=== PATIENT | female | born 1935 | race Caucasian/White ===

== ENCOUNTER 2016-06-26 19:46 | Inpatient (IN) | payer OTHER, MEDICARE ==
[~2016-06-26] VITALS: Ht 160 cm; Wt 55.6 kg
[2016-06-26 21:19] VITALS: BP 117/48; PULSE 99; RESP 20
[2016-06-26] MEDS ORDERED: Ondansetron 2 mg/mL 2 mL Inj IVPUSH PRN (21:25)
[2016-06-26] MEDS ORDERED: Alum-Mag Hydrox-Simeth 30 mL Suspension PO PRN (21:25)
[2016-06-26] MEDS ORDERED: Diltiazem Inj 125 MG in Dextrose 5% 100 ML IV SCH (21:25)
[2016-06-26] MEDS ORDERED: Polyethylene Glycol (PEG) 17 Gm Powder PO PRN (21:25)
[2016-06-26 21:27] VITALS: PULSE 116
[2016-06-26 21:51] LABS: BASOPHILS % (AUTO) 0.3 % (0-3); EOSINOPHILS % (AUTO) 0.6 % (0-5); MONOCYTES % (AUTO) 6.1 % (4-12); Mean Corpuscular Hemoglobin 29.4 pg (27.0-35.0); NEUTROPHILS % (AUTO) 74.1 % (40-74); Platelet Count 282 bil/L (150-400)
[2016-06-26] MEDS ORDERED: LISI2.5T (21:55)
--- NOTE | 2016-06-26 22:08 | PCM.HPMED ---
Subjective Date of Service Jun 26, 2016 Primary Provider: Admitting Physician: Eden Pollock DO Primary Care Physician: Lakisha Lemus Attending Physician: Eden Pollock DO Admit Status: Direct Admit (From [place]) Chief Complaint: near syncope, weakness, dizziness History of Present Illness: 80yoF with past medical history of COPD requiring home oxygen, tobacco dependence, HTN transferred from OSH with weakness and dizziness found to be in atrial fibrillation with RVR. Patient has difficulties with dementia and HPI is obtained through family at bedside. 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 Her niece was driving to a restaurant to meet patient' s nephew. After they arrived at the restaurant her niece got out of the car and met her . When she turned around she saw her aunt who got out of the car and appeared to stumble with walking. They rushed to her side and caught her as she fell to the ground. She was taken to [facility]. At [facility] patient was found to be in atrial fibrillation with rapid ventricular response and started on diltiazem gtt with good response. she was also given lovenox (60mg) OSH labs include sodium 130, potassium 4.1, CO2 25, creatinine 0.5, troponin negative, BNP 101, INR 0.9, WBC 6.6, Hgb13.2, platelet 248. As patient is a difficult historian ROS are relatively unreliable however it is confirmed that she has had difficulties with diarrhea following steroid injection one year prior to admission. She denies fevers, chills, nausea, vomiting, chest pain, chest tightness, palpitations, lower extremity edema, orthopnea, PND, difficulties with urination. She does endorse increased falls recently. She prefers not to take medications but does use her home oxygen on setting #3 but can't tell me how much she uses it. Review of Systems: Complete review of systems has been obtained. Positive as per HPI otherwise negative. Allergies Coded Allergies: No Known Allergies (Unverified , 06/26/16) Home Medications Felodipine Lisinopril AREDS 2 PMH Tobacco dependence COPD oxygen dependent HTN Aortic stenosis Surgical History Sinus surgery Family History Diabetes, heart disease sister with breast cancer Social History Hx Alcohol Use: Yes Hx Substance Use: No Smoking Status: Current Every Day Smoker Exam Vital Signs Vital Sign - Last Date Time Temp Pulse Resp B/P Pulse Ox O2 Delivery O2 Flow Rate FiO2 06/26/16 21:27 116 06/26/16 21:19 36.4 20 117/48 Room Air Exam General: Alert, Oriented to self, year, knows president, Cooperative, No acute Distress, raspy voice Eyes: PERRLA, Scleral Anicteric Mouth: Mouth Normal, Mucous Membranes moist/[place] Neck: Supple, no Thyromegaly, trachea central. Chest & Lungs: CTA bilat, barrel chest, good resp effort Cardiovascular: Normal S1, Normal S2, No Murmurs/Rubs/Gallops, irregularly irregular/tachy, (no JVD, no peripheral edema) Pulses: Radial (present and equal), Dorsalis Pedi (present and equal) Abdomen: Soft, Non-tender, Non-distended, Normoactive bowel tones. Musculoskeletal: Unremarkable. Normal range of motion, no swollen or erythematous joints Extremities: no edema, no cyanosis, no clubbing. Skin: No rashes. Warm and dry, no erythematous areas Neurological: Grossly neurologically intact, Normal Speech, Sensation Intact Lymphatic: Lymph nodes Cervical and Axillary not palpable. Lab and Diagnostics Result Diagram: 06/26/162142 Assessment & Plan 80yoF with past medical history of COPD requiring home oxygen, tobacco dependence, HTN transferred from OSH with weakness and dizziness found to be in atrial fibrillation with RVR. New onset atrial fibrillation, acute, POA -a/w presenting symptoms of weakness and dizziness -no EKG avail on admit, EKG ordered -TSH and free T4 pending -cont diltiazem gtt, transition to PO rate control -ECHO ordered for am -patient was given 60mg lovenox prior to transfer however given h/o noncompliance and recent difficulties with cognition she may not be a good candidate for fdc anticoagulation. Day team to discuss with patient and family. please refer to ED documentation in paper chart Elevated glucose, acute -no history of diabetes -hgbA1c pending COPD, chronic -currently not taking any home medications -oxygen sats 88-92 -albuterol q2HR PRN HTN, chronic, POA -not compliant with home medications -consideration to restarting lisinopril and felodipine, normotensive on admission Tobacco dependence, chronic -discussed the importance of tobacco cessation, she is ready to cut back, doesn' t know how much she smokes -nicotine patch available upon request Dispo planning: patient with early dementia and is aware of difficulties with short term memory. She may require increased assistance at home in the near future and will require PT evaluation d/t increase number of falls in the past month. She is adamant about discharging 06/27 regardless of medical need for admission and family had difficulties persuading her to be admitted overnight stating she would rather go home and . She prefers to take no medications and has stopped taking medications she was given for hypertension. Pain Evaluation: Adequate Pain Control GI Prophylaxis: Not indicated VTE Prophylaxis: Other (therapeutic dose enoxaparin given prior to transfer. AM team to discuss further anticoagulation options) Resuscitation Status: CPR: Attempt Resuscitation Eden Pollock DO Jun 26, 2016 22:08
[2016-06-26 22:29] LABS: TROPONIN T 0.011 ug/L (0.0-0.011)
[2016-06-27 00:40] VITALS: BP 139/60; PULSE 86; PULSE 89; RESP 17; O2SAT 96
[2016-06-27 01:03] LABS: APPEARANCE,URINE CLEAR (CLEAR,HAZY); COLOR,URINE YELLOW (YELLOW); OCCULT BLOOD,URINE SMALL (NEGATIVE); PH,URINE 6.5 (5.0-8.0)
[2016-06-27 03:38] VITALS: BP 161/54; PULSE 64; RESP 18; O2SAT 97
[2016-06-27 03:52] LABS: BASOPHILS % (AUTO) 0.2 % (0-3); EOSINOPHILS % (AUTO) 2.1 % (0-5); MONOCYTES % (AUTO) 9.2 % (4-12); Mean Corpuscular Hemoglobin 29.3 pg (27.0-35.0); Mean Corpuscular Volume 89.3 fL (81-100); NEUTROPHILS % (AUTO) 54.5 % (40-74); Platelet Count 250 bil/L (150-400)
--- NOTE | 2016-06-27 04:54 | NUR ---
Admit: Pt admitted to P[facility] room 2030 from [facility]. Report received prior to transfer. Pt arrived a/ox3 in stable condition. Tele Afib 90s- with dilt gtt infusing @ 5ml/hr ( order continued by dr. Dillon) health history completed via pt interview. Pt current medication regime unclear as pt has new recent script for "BP meds" but states she is not taking them. pt resting comfortably in bed, call duran in reach.
--- NOTE | 2016-06-27 04:57 | NUR ---
Converted to SR Around 0200 pt Converted to SR/ Sbrady. MD made aware. Dilt gtt put on hold while pt is in SR. Vitals stable, Pt resting comfortably. No order for PO at this time.
[2016-06-27] MEDS ORDERED: FELO5TAB4 PO (07:51)
[2016-06-27] MEDS ORDERED: [UNRECOGNIZED DRUG - OTHER] PO (08:04)
[2016-06-27 09:30] VITALS: BP 157/53; PULSE 58; RESP 17; O2SAT 97
[2016-06-27 10:46] VITALS: PULSE 54
--- NOTE | 2016-06-27 11:24 | NUR ---
Social Work: Initial Assessment / Readiness for d/c Data: Pt is a 89 y/o female admitted for afib with RVR. Pt's PCP is Dr Lemus. Pt's insurance is Medicare wtih [employer] [place] of [place]. EMR reviewed. Readmit score not listed. DRAFTER SEISMOGRAPH met with pt and nephew at bedside, role explained. Pt states that she lives alone in a two story home in [place] where she uses no DME but has home O2 through [employer]. Pt states she drives, has no hx of HH or SNF, has LTC insurance through [employer] and does not have VA benefits nor is a caregiver. Pt's nephew lives 5 minutes away from her. She reports have an AD/DPOA, nephew states he will bring this in. No further d/c planning needs anticipated at this time. DRAFTER SEISMOGRAPH will continue to follow if needs arise. Assessment: Pt who is independent at baseline. Plan: Pt will d/c home via POV possibly today or tomorrow, per MD. No further d/c planning needs anticipated at this time. DRAFTER SEISMOGRAPH will continue to follow if needs arise. IVIS Alejandre Addendum: 06/27/16 at 1127 by ANAHI VELA Amended: Links added.
[2016-06-27 12:27] VITALS: BP 178/46; PULSE 56; RESP 19; O2SAT 95
--- NOTE | 2016-06-27 14:56 | DRSVH ---
[facility] [address] [place] [address] Echocardiogram Report Name: RODDY HUTCHINS EStudy Date: 06/27/2016 Height: 63 in Hospital Exam Location: [facility] Weight: 123 lb Gender: Female BSA: 1.6 m2 : 1935 Age: 80 yrs BP: 161/54 mmHg Reason For Study: AFIB Ordering Physician: HOSPITALIST SVHPerformed By: Edgar Wood Referring Physician: Marin CROWELL Interpretation Summary 1. Normal left ventricular size, wall thickness and systolic function with an estimated EF of 60-65% 2. Normal right ventricular size and systolic function. 3. Findings consistent with moderate aortic stenosis, trace insufficiency Compared to the previous study, no significant change Procedure: A two-dimensional transthoracic echocardiogram with color flow and Doppler was performed. The study quality was technically adequate. Comparison is made with the echocardiogram of 03/29/15. The patient was in normal sinus rhythm during the exam. Left Ventricle: The left ventricle is normal in size. There is normal left ventricular wall thickness. The ejection fraction is estimated to be 60-65%. No obvious focal wall motion abnormalities. Right Ventricle: The right ventricle is normal in size and function. Atria: The left atrium is severely dilated. The right atrium is mildly dilated. The atrial septum is aneurysmal. Mitral Valve: The mitral valve leaflets are mildly calcified. There is moderate mitral annular calcification. No evidence for mitral stenosis. There is trace mitral regurgitation. Aortic Valve: The aortic valve is trileaflet. The aortic valve is moderately calcified. The peak aortic velocity is 2.81 m/sec. The aortic valve mean gradient is 17.0 mmHg. The calculated aortic valve area is 1.1 cm2. There is moderate aortic stenosis. There has been no significant change since the previous study. There is trace aortic regurgitation. Tricuspid Valve: The tricuspid valve leaflets are thin and pliable. There is trace tricuspid regurgitation. The right ventricular systolic pressure is estimated at 29 mmHg assuming a right atrial pressure of 3 mm Hg. Pulmonic Valve: The pulmonic valve is not well seen, but is grossly normal. There is no pulmonic valvular regurgitation. Great Vessels: The aortic root is normal size. The dimensions of the ascending aorta are normal. Evidence for plaque in the abdominal aorta. The IVC is of normal diameter and collapses greater than 50% with a sniff. This suggests a low right atrial pressure of 3 mm Hg. Pericardium/ Pleura There is no pericardial effusion. There is no pleural effusion. MMode/2D Measurements & Calculations LVIDd: 4.9 cm LA dimension: 4.2 cm RA long axis LVOT diam LVIDs: 2.7 cm FS: 44.9 % LA A2 area: 25.9 cm RA area AoV Opening EPSS: 0.62 cm LA A4 area: 24.7 cm IVSd: 0.95 cm LA length (vol): 6.2 cm: 17.5 cm Ao root diam LVPWd: 1.0 cm LA vol: 88.3 ml RA vol LA vol index : 57.5 ml Aortic Jxn RA : 36.6 mm2 asc Aorta IVC diam: 1.9 cm Diam: 3.0 cm LV arriola. diameter/BSA LV sys. diameter/BSA (cm/m^2): 3.1 (cm/m^2): 1.7 Doppler Measurements & Calculations Ao V2 max MV E max zaid MV E/A: 0.65 TR max zaid : 281.9 cm/sec : 91.9 cm/sec Med Peak E' Zaid : 253.0 cm/sec Ao max P.8 mmHg MV A max zaid TR max PG Ao mean P.0 mmH.9 cm/sec E/E' med: 21.7 : 25.6 mmHg LVOT Max Zaid Lat Peak E' Zaid PA V2 max : 86.3 cm/sec MVA(VTI): 2.3 cm2 : 90.8 cm/sec E/E' lat: 26.2 PA mean PG RABIA(I,D): 1.1 cm E/e' average sev ratio: 0.34 PA Accel Time Pulm A Revs Dur : 0.08 sec MV A dur : 0.12 sec MV V2 mean Ao V2 mean LV V1 max PG PA V2 mean : 71.1 cm/sec : 197.7 cm/sec : 63.7 cm/sec MV mean P.6 mmHg Ao V2 VTI: 64.3 cm LV V1 VTI PA pr(Accel) MV V2 VTI: 31.9 cm : 21.8 cm : 39.1 mmHg MV dec time: 0.30 secAVA(V,D): 1.0 cm2 RABIA indexed to BSA Pulm A Revs Dur - MV A (cm^2/m^2): 0.73 Dur: -0.01 msec Reading Physician:02:55 PM
--- NOTE | 2016-06-27 15:17 | NUR ---
Social Work: Discharge Data: Pt is on day 1 of hospitalization. EMR reviewed. D/C orders are in. No d/c planning needs at this time. INDIAN NANNY will continue to follow if need arise. Assessment: Pt who is independent at baseline. Plan: Pt will d/c home via POV today with family. No d/c planning needs at this time. INDIAN NANNY will continue to follow if need arise. IVIS Alejandre
--- NOTE | 2016-06-27 15:29 | PCM.DIMED ---
Meenakshi Reece DO 06/27/16 1529: Discharge Instructions Date of Service Jun 27, 2016 Dates of Hospitalization Jun 26, 2016 at 21:02 Discharge Diagnosis Discharge Diagnosis 1. New onset atrial fibrillation, present on admission. Resolved 2. Chronic obstructive pulmonary disease, present on admission. Stable 3. Hypertension, present on admission. Stable 4. Nicotine dependence, chronic, present on admission. Active Medication Instructions 1. Would recommend to monitor your blood pressure at home and take your blood pressure medications as prescribed. 2. We recommended to take at least aspirin, 81 mg daily. 3. We recommend hospital follow up with your primary care provider to discuss possible risk and benefits of being on buttermaker helper anticoagulation due to recent atrial fibrillation event as well as heart rate control. 4. We would also recommend to consider smoking cessation and he can discuss this with ELYSIA George during the next appointment. Test Results Echocardiogram Report Interpretation Summary 1. Normal left ventricular size, wall thickness and systolic function with an estimated EF of 60-65% 2. Normal right ventricular size and systolic function. 3. Findings consistent with moderate aortic stenosis, trace insufficiency Compared to the previous study, no significant change Reading Physician:02:55 PM Diet Heart Healthy Activity Limited until seen by PCP Call your provider Fever or Chills, Shortness of breath, Bleeding, Chest pain, Vomitting, Excessive diarrhea, Weakness (unilateral) Patient Instructions Follow-up Provider: Lakisha Lemus Follow-up with PCP in: 1 week Additional Information Please discuss and fill out POLST and DPOA forms with you primary care provider during bthe next appointment. Luis Tanner MD 06/28/16 0742: Discharge Instructions Attending's Statement The patient was seen and examined together with Dr. Reece on 06/27/2016 and I agree with the history, exam and plan as outlined in the note above. . Meenakshi Reece DO Jun 27, 2016 15:29 Luis Tanner MD Jun 28, 2016 07:42
--- NOTE | 2016-06-27 16:28 | PCM.DC.MED ---
Discharge Summary Date of Service Jun 27, 2016 Dates of Hospitalization Date of Hospital Admission Jun 26, 2016 at 21:02 Date of Discharge: Jun 27, 2016 Providers: Admitting Physician: Eden Pollock DO Primary Care Physician: Lakisha Lemus Attending Physician: Eden Pollock DO Diagnosis at Time of Discharge Diagnosis at Time of Discharge 1. New onset atrial fibrillation, present on admission. Resolved 2. Chronic obstructive pulmonary disease, present on admission. Stable 3. Hypertension, present on admission. Stable 4. Nicotine dependence, chronic, present on admission. Active Procedures Cardiac Echo Impression Echocardiogram Report Interpretation Summary 1. Normal left ventricular size, wall thickness and systolic function with an estimated EF of 60-65% 2. Normal right ventricular size and systolic function. 3. Findings consistent with moderate aortic stenosis, trace insufficiency Compared to the previous study, no significant change Brief History Per Admitting Physician: Eden Pollock DO: History of Present Illness: 80yoF with past medical history of COPD requiring home oxygen, tobacco dependence, HTN transferred from OSH with weakness and dizziness found to be in atrial fibrillation with RVR. Patient has difficulties with dementia and HPI is obtained through family at bedside. 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 Her niece was driving to a restaurant to meet patient' s nephew. After they arrived at the restaurant her niece got out of the car and met her . When she turned around she saw her aunt who got out of the car and appeared to stumble with walking. They rushed to her side and caught her as she fell to the ground. She was taken to [place] [facility] ED. At [place] patient was found to be in atrial fibrillation with rapid ventricular response and started on diltiazem gtt with good response. she was also given lovenox (60mg) OSH labs include sodium 130, potassium 4.1, CO2 25, creatinine 0.5, troponin negative, BNP 101, INR 0.9, WBC 6.6, Hgb13.2, platelet 248. As patient is a difficult historian ROS are relatively unreliable however it is confirmed that she has had difficulties with diarrhea following steroid injection one year prior to admission. She denies fevers, chills, nausea, vomiting, chest pain, chest tightness, palpitations, lower extremity edema, orthopnea, PND, difficulties with urination. She does endorse increased falls recently. She prefers not to take medications but does use her home oxygen on setting #3 but can't tell me how much she uses it. Hospital Course Mahnaz Baca is an 80 -year-old female with past medical history of chronic obstructive pulmonary disease requiring home oxygen, tobacco dependence, hypertension transferred from outside hospital with weakness and dizziness found to be in atrial fibrillation with right ventricular response. 1. New onset atrial fibrillation, present on admission. Resolved -Associated with presenting symptoms of weakness and dizziness -Echocardiogram revealing atrial fibrillation with heart rate of 91, possible left ventricular hypertrophy, possible anterior infarct, old. No previous study for comparison -TSH and free T4 within normal limits -ECHO within normal limits -Continued diltiazem gtt -Patient converted spontaneously to normal sinus rhythm at 2 AM on the first night after admission -Upon discharge patient was adamant about starting new medications. Recommendation was given to start at least aspirin, 81 mg daily and follow-up with primary care provider for further discussion of future treatment 2. Chronic obstructive pulmonary disease, present on admission. Stable -Currently not taking any home medications but on home oxygen at night time -Maintained oxygen saturation at 88-92 % -Continued albuterol every 2 hours as needed for shortness of breath -Smoking cessation was discussed and encouraged 3. Hypertension, chronic, not present on admission. Presumed stable -Patient not compliant with his home medications but normotensive on admission -Recommend monitoring home blood pressure and restarting home lisinopril and felodipine as needed 4. Nicotine dependence, chronic, present on admission. Active -Discussed the importance of tobacco cessation, patient is ready to quit, she will follow-up with her primary care provider -Nicotine patch provided upon request Disposition: patient with early dementia and is aware of difficulties with short term memory. She may require increased assistance at home in the near future and it was discussed with her family members present during the hospitalization. She prefers to take no medications and has stopped taking medications she was given for hypertension. Patient was discharged home in a stable condition with sinus rhythm with a rate in 50-65's. Exam Vital Signs (Last) Date Time Temp Pulse Resp B/P Pulse Ox O2 Delivery O2 Flow Rate FiO2 06/27/16 12:27 36.6 56 19 178/46 95 Room Air 06/27/16 09:30 1.00 Exam General: Alert, Oriented to self, year, knows president, Cooperative, No acute Distress, raspy voice Eyes: Scleral Anicteric Mouth: Mouth Normal, Mucous Membranes moist/[place] Neck: Supple, no Thyromegaly, trachea central. Chest & Lungs: Clear to auscultations bilaterally, barrel chest, good respiratory effort Cardiovascular: regular rate and rhythm, Normal S1, Normal S2, No Murmurs/Rubs/ Gallops Pulses: Radial (present and equal), Dorsalis Pedi (present and equal) Abdomen: Soft, Non-tender, Non-distended, Normoactive bowel tones. Musculoskeletal: Unremarkable. Normal range of motion, no swollen or erythematous joints Extremities: no edema, no cyanosis, no clubbing. Skin: No rashes. Warm and dry, no erythematous areas Neurological: Grossly neurologically intact, Normal Speech, Sensation Intact Lymphatic: Lymph nodes Cervical and Axillary not palpable. Test 06/26/16 21:43 06/26/16 23:55 06/27/16 03:40 Magnesium Level 2.0mg/dL (1.6-2.6) Troponin T 0.011ug/L (0.0-0.011) Thyroid Stimulating Hormone (TSH) 0.802uIU/mL (0.450-4.500) Free Thyroxine 1.23ng/dL (0.82-1.77) Urine Color Yellow (YELLOW) Urine Appearance Clear (CLEAR,HAZY) Urine pH 6.5 (5.0-8.0) Urine Specific [place] 1.015 (1.003-1.035) Urine Protein Negativemg/dL (NEG,TRACE) Urine Glucose (UA) Negativemg/dL (NEGATIVE) Urine Ketones Tracemg/dL (NEGATIVE) Urine Occult Blood Small (NEGATIVE) Urine Nitrite Negative (NEGATIVE) Urine Bilirubin Negative (NEGATIVE) Urine Urobilinogen 1.0mg/dL (NORMAL) Urine Leukocyte Esterase Negative (NEGATIVE) Urine RBC 3-10/hpf (0-2) Urine WBC 0-5/hpf (0-5) Urine Epithelial Cells Occasional/hpf (NONE-MOD) Urine Crystals None seen (NONE SEEN) Urine Bacteria Few/hpf (NONE-FEW) Urine Hyaline Casts None/lpf (NONE) Urine Granular Casts None seen (NONE SEEN) Urine Waxy Casts None seen (NONE SEEN) Urine Red Blood Cell Casts None seen (NONE SEEN) Urine White Blood Cell Casts None seen (NONE SEEN) Urine Mucus None seen (None Seen) Urine Trichomonas None seen (NONE SEEN) Urine Yeast None (NONE SEEN) Urinalysis Comment None Urine Culture Reflexed Not indicated White Blood Count 5.3th/mm3 (3.8-10.1) Red Blood Count 4.00mil/mm3 (3.90-5.20) Hemoglobin 11.7g/dL (12.0-15.6) Hematocrit 35.7% (35.0-46.0) Mean Corpuscular Volume 89.3fL (81-100) Mean Corpuscular Hemoglobin 29.3pg (27.0-35.0) Mean Corpuscular Hemoglobin Concent 32.8% (32.0-37.0) Red Cell Distribution Width 14.0% (12.3-15.4) Platelet Count 250bil/L (150-400) Neutrophils (%) (Auto) 54.5% (40-74) Lymphocytes (%) (Auto) 33.8% (14-46) Monocytes (%) (Auto) 9.2% (4-12) Eosinophils (%) (Auto) 2.1% (0-5) Basophils (%) (Auto) 0.2% (0-3) Sodium Level 133mEq/L (134-144) Potassium Level 4.1mEq/L (3.5-5.2) Chloride Level 99mEq/L (97-108) Carbon Dioxide Level 24mmol/L (18-29) Blood Urea Nitrogen 12mg/dL (8-27) Creatinine 0.37mg/dL (0.57-1.00) Estimat Glomerular Filtration Rate 241mL/min (>59) Glucose Level 99mg/dL (60-99) Calcium Level 8.4mg/dL (8.5-10.1) Discharge Medications Discharge Medications ([arreds 2]) 2 TAB PO DAILY (Reported) Felodipine ER (Felodipine ER) 5 Mg Tab.er.24h 5 MG PO DAILY (Reported) Miscellaneous Medications Lisinopril (Lisinopril) 2.5 Mg Tablet 2.5 (Reported) Additional med instructions 1. Would recommend to monitor your blood pressure at home and take your blood pressure medications as prescribed. 2. We recommended to take at least aspirin, 81 mg daily. 3. We recommend hospital follow up with your primary care provider to discuss possible risk and benefits of being on longterm anticoagulation due to recent atrial fibrillation event as well as heart rate control. 4. We would also recommend to consider smoking cessation and he can discuss this with ELYSIA George during the next appointment. Followup Plan Discharge Diet: Heart Healthy Discharge Activity: Limited until seen by PCP Follow-up Provider: Lakisha Lemus Follow-up with PCP in: 1 week Time spent Greater than 30 minutes was spent in preparation of discharge with greater than 50% of that time dedicated to patient counseling and coordination of care. . Attending Statement The patient was seen and examined together with Dr. Reece on 06/27/2016 and I agree with the history, exam and plan as outlined in the note above. . copies to: Lakisha Lemus Oksana S DO Jun 27, 2016 16:28 Lusi Tanner MD Jun 28, 2016 07:43
--- NOTE | 2016-06-27 17:13 | NUR ---
Discharge Patient ambulated off unit with family in a stable condition. IV DC'd intact, all personal belongings with patient, tele removed. Great time taken to discuss medications -- patient had multiple questions and needed frequent reminding to take BP meds once daily per medication reconciliation (Lisinopril and Felodipine). Also discussed starting 81 mg Aspirin per day per MD recommendations. Patient stated she had not taken any BP meds in 5 days, discussed discharge instructions from MD and how they are recommending to continue BP meds until seen by PCP on July 06. Family at bedside is very involved and verbalized they understood discharge instructions/recommendations and that they would be assisting patient.
== END 2016-06-27 17:00 | disposition home or self-care (01) | DRG 310 ==
LOC: PCC 21:02
PROVIDERS: ADMIT Internal Medicine; ATTEND Internal Medicine
PROC: 3E033RZ Introduction of Antiarrhythmic into Peripheral Vein, Percutaneous Approach (ICD-10-PCS; principal; 2016-06-26)
DX: I48.91 Unspecified atrial fibrillation (principal); J44.9 Chronic obstructive pulmonary disease, unspecified; I10 Essential (primary) hypertension; F17.210 Nicotine dependence, cigarettes, uncomplicated; R29.6 Repeated falls; I35.0 Nonrheumatic aortic (valve) stenosis; Z99.81 Dependence on supplemental oxygen; Z91.19 Patient's noncompliance with other medical treatment and regimen